=== PATIENT | female | born 1945 | race Asian ===

== ENCOUNTER 2018-09-27 03:38 | Emergency (ER) | payer BC, MEDICARE ==
[~2018-09-27] VITALS: Ht 162.6 cm; Wt 59.0 kg
[2018-09-27 03:45] VITALS: Ht 162.6 cm; Wt 59.0 kg
[2018-09-27] MEDS ORDERED: ONDANSETRON (ODT) 4 MG TAB ODT STA (04:25)
[2018-09-27] MEDS ORDERED: ACETAMINOPHEN 325 MG TAB PO ONE (04:30)
[2018-09-27] MEDS ORDERED: CEPH-443 PO (05:24)
[2018-09-27] MEDS ORDERED: ONDA4TAB14 PO (05:29)
[2018-09-27 05:33] VITALS: BP 160/79; PULSE 57; RESP 20
--- NOTE | 2018-09-27 05:49 | ERD ---
ER Documentation Chief Complaint Chief Complaint frequent/burning urination x 1 day. c/o lower abd pain HPI 73-year-old female presents to the emergency department complaining of frequent urination/burning on urination intermittently for the past 1 day. Symptoms are mild to moderate. She is also had some mild left flank suprapubic pain. She denies any back pain, fevers, chills, or other symptoms at this time. She tried Tylenol at home with some relief. ROS All systems reviewed and are negative except as per history of present illness. Medications Home Meds Active Scripts Ondansetron (Ondansetron Odt) 4 Mg Tab.rapdis, 4 MG PO Q6H PRN for NAUSEA AND/OR VOMITING, #10 TAB Prov:NEMO JOYCE PA-C 09/27/18 Cephalexin* (Keflex*) 500 Mg Capsule, 500 MG PO TID for 7 Days, CAP Prov:NEMO JOYCE PA-C 09/27/18 Allergies Allergies: Coded Allergies: No Known Drug Allergies (Verified Allergy, Unknown, 09/27/18) PMhx/Soc History of Surgery: Yes (hysterectomy) Anesthesia Reaction: No Hx Neurological Disorder: No Hx Respiratory Disorders: No Hx Cardiac Disorders: Yes (htn, hld) Hx Psychiatric Problems: No Hx Miscellaneous Medical Probl: No Hx Alcohol Use: No Hx Substance Use: No Hx Tobacco Use: No Smoking Status: Never smoker FmHx Family History: No diabetes Physical Exam Vitals Vital Signs Date Temp Pulse Resp B/P (MAP) Pulse Ox O2 O2 Flow FiO2 Time Delivery Rate 09/27/18 98.9 57 20 160/79 100 Room Air 05:33 (106) 09/27/18 98.7 68 18 172/80 99 03:45 (110) Physical Exam Const: No acute distress Head: Atraumatic Eyes: Normal Conjunctiva ENT: Normal External Ears, Nose and Mouth. Neck: Full range of motion. No meningismus. Resp: Clear to auscultation bilaterally Cardio: Regular rate and rhythm, no murmurs Abd: Soft, non tender, non distended. Normal bowel sounds. No rebound tenderness or guarding. No McBurney's point tenderness. Skin: No petechiae or rashes Back: No midline or flank tenderness Ext: No cyanosis, or edema Neur: Awake and alert Psych: Normal Mood and Affect Result Diagram: 09/27/18 0430 09/27/18 0430 Results 24 hrs Laboratory Tests Test 09/27/18 04:30 White Blood Count 9.7 10^3/ul Red Blood Count 4.39 10^6/ul Hemoglobin 13.1 g/dl Hematocrit 39.1 % Mean Corpuscular Volume 89.1 fl Mean Corpuscular Hemoglobin 29.8 pg Mean Corpuscular Hemoglobin Concent 33.5 g/dl Red Cell Distribution Width 13.0 % Platelet Count 221 10^3/UL Mean Platelet Volume 9.4 fl Immature Granulocytes % 0.300 % Neutrophils % 88.4 % Lymphocytes % 7.9 % Monocytes % 3.0 % Eosinophils % 0.0 % Basophils % 0.4 % Nucleated Red Blood Cells % 0.0 /100WBC Immature Granulocytes # 0.030 10^3/ul Neutrophils # 8.6 10^3/ul Lymphocytes # 0.8 10^3/ul Monocytes # 0.3 10^3/ul Eosinophils # 0.0 10^3/ul Basophils # 0.0 10^3/ul Nucleated Red Blood Cells # 0.0 10^3/ul Urine Color STRAW Urine Clarity SLIGHTLY CLOUDY Urine pH 6.0 Urine Specific [place] 1.015 Urine Ketones 1+ mg/dL Urine Nitrite NEGATIVE mg/dL Urine Bilirubin NEGATIVE mg/dL Urine Urobilinogen NEGATIVE mg/dL Urine Leukocyte Esterase TRACE [place]/ul Urine Microscopic RBC > 182 /HPF Urine Microscopic WBC 8 /HPF Urine Squamous Epithelial Cells FEW /HPF Urine Hemoglobin 3+ mg/dL Urine Glucose NEGATIVE mg/dL Urine Total Protein NEGATIVE mg/dl Sodium Level 140 mmol/L Potassium Level 4.0 mmol/L Chloride Level 104 mmol/L Carbon Dioxide Level 26 mmol/L Anion Gap 10 Blood Urea Nitrogen 21 mg/dl Creatinine 0.95 mg/dl Est Glomerular Filtrat Rate mL/min mL/min Glucose Level 123 mg/dl Calcium Level 9.6 mg/dl Total Bilirubin 1.2 mg/dl Direct Bilirubin 0.00 mg/dl Indirect Bilirubin 1.2 mg/dl Aspartate Amino Transf (AST/SGOT) 39 IU/L Alanine Aminotransferase (ALT/SGPT) 29 IU/L Alkaline Phosphatase 113 IU/L Total Protein 8.2 g/dl Albumin 4.5 g/dl Globulin 3.70 g/dl Albumin/Globulin Ratio 1.21 Current Medications Medications Dose Sig/[place] Start Time Status Last (Trade) Ordered Route PRN Stop Time Admin Dose Reason Admin Ondansetron 4 mg ONCE STAT 09/27/18 DC 09/27/18 HCl (Zofran ODT 04:25 04:36 Odt) 09/27/18 04:27 650 mg ONCE ONCE 09/27/18 DC 09/27/18 Acetaminophen PO 04:30 04:37 (Tylenol 09/27/18 04:31 Tab) Procedures/MDM 73-year-old female presents to the emergency department with signs, symptoms, work-up was consistent with mild urinary tract infection without evidence of sepsis, meningitis, pyelonephritis, acute surgical abdomen, or other mehrdad rgencies. CBC and CMP showed no significant acute abnormalities. No evidence of severe leukocytosis or anemia. Patient is afebrile, nontoxic, well-appearing with stable vital signs. She is appropriate for discharge and further outpatient management with a prescription for Keflex and Zofran. She was advised to return to the department immediately for any new or worsening or concerning symptoms. She was advised to have 24 to 48-hour follow-up with her primary care physician. She was in agreement with the diagnosis, plan company for follow-up, return precautions. Patient's blood pressure was elevated (>120/80) but appears stable without evidence of hypertension emergency or urgency. The patient is to follow-up and pursue outpatient monitoring and therapy with their primary care physician within 1 week and return immediately if they have any new, worsening, or concerning symptoms. Departure Diagnosis: Primary Impression: UTI (urinary tract infection) Condition: Fair Patient Instructions: Understanding Urinary Tract Infections (UTIs) Referrals: [facility] YOU HAVE RECEIVED A MEDICAL SCREENING EXAM AND THE RESULTS INDICATE THAT YOU DO NOT HAVE A CONDITION THAT REQUIRES URGENT TREATMENT IN THE EMERGENCY DEPARTMENT. FURTHER EVALUATION AND TREATMENT OF YOUR CONDITION CAN WAIT UNTIL YOU ARE SEEN IN YOUR DOCTORS OFFICE WITHIN THE NEXT 1-2 DAYS. IT IS YOUR RESPONSIBILITY TO MAKE AN APPOINTMENT FOR FOLOW-UP CARE. IF YOU HAVE A PRIMARY DOCTOR --you should call your primary doctor and schedule an appointment IF YOU DO NOT HAVE A PRIMARY DOCTOR YOU CAN CALL OUR PHYSICIAN REFERRAL HOTLINE AT IF YOU CAN NOT AFFORD TO SEE A PHYSICIAN YOU CAN CHOSE FROM THE FOLLOWING [facility] [address] [facility] [address] [facility] [address] [facility] [address] [facility]. [facility] [address] [facility]. [facility] [address] Additional Instructions: Call your primary care doctor TOMORROW for an appointment during the next 1-2 days.See the doctor sooner or return here if your condition worsens before your appointment time. NEMO JOYCE PA-C Sep 27, 2018 05:49
== END 2018-09-27 05:36 | disposition home or self-care (01) ==
LOC: FTE 03:38
DX: N39.0 Urinary tract infection, site not specified (principal); I10 Essential (primary) hypertension
CPT/HCPCS: 80053; 81001; 85025; 99283

== ENCOUNTER 2018-11-03 14:38 | Emergency (ER) | payer BC ==
[~2018-11-03] VITALS: Ht 154.9 cm; Wt 59.7 kg
[~2018-11-03 14:38] MED LIST: CEPH-443 PO; ONDA4TAB14 PO
[2018-11-03 15:06] VITALS: BP 175/77; PULSE 72; RESP 16; Ht 154.9 cm; Wt 59.7 kg
== END 2018-11-03 16:55 | disposition home or self-care (01) ==
LOC: E/R 14:38
DX: R30.0 Dysuria (principal); I10 Essential (primary) hypertension
CPT/HCPCS: 80048; 81003; 85025; 87086; 99283